=== PATIENT | male | born 1950 | race Caucasian/White ===

== ENCOUNTER 2023-02-14 11:41 | Emergency (ER) | payer MEDICARE ==
[~2023-02-14] VITALS: Ht 174.2 cm; Wt 93.0 kg
[2023-02-14] MEDS ORDERED: Bactroban Oint22 GM T (12:41)
== END 2023-02-14 12:55 | disposition home or self-care (01) ==
LOC: ED 11:41 → EDSEX 11:44 → ED 11:44
DX: T20.10XA Burn of first degree of head, face, and neck, unspecified site, initial encounter (principal); T31.0 Burns involving less than 10% of body surface; X08.8XXA Exposure to other specified smoke, fire and flames, initial encounter; Y93.89 Activity, other specified; Y92.89 Other specified places as the place of occurrence of the external cause; Y99.8 Other external cause status